=== PATIENT | female | born 1950 | race Native Hawaiian/Other Pacific Islander ===

== ENCOUNTER 2016-07-19 08:26 | Outpatient (CLI) | payer OTHER ==
[2016-07-19 09:11] LABS: PLATELET COUNT 135 K/uL (152-353); POTASSIUM 4.1 mmol/L (3.6-5.2)
== END 2016-07-19 19:09 | disposition home or self-care (01) ==
LOC: LABW 08:26
PROVIDERS: Internal Medicine Gastroenterology
DX: K74.60 Unspecified cirrhosis of liver (principal)
CPT/HCPCS: 36415; 80053; 85027; 85610

== ENCOUNTER 2016-09-26 14:11 | Emergency (ER) | payer OTHER ==
[~2016-09-26] VITALS: Ht 149.9 cm; Wt 74.8 kg
[2016-09-26 14:20] VITALS: TEMP 99
[2016-09-26 15:16] LABS: PLATELET COUNT 122 K/uL (152-353)
[2016-09-26 18:26] VITALS: BP 142/82
== END 2016-09-26 18:27 | disposition home or self-care (01) ==
LOC: ED 14:11
DX: R10.84 Generalized abdominal pain (principal); N39.0 Urinary tract infection, site not specified
CPT/HCPCS: 36415; 81000; 85027; 87077; 87086; 87088; 87186; 96372; 99283; J0696; J3490

== ENCOUNTER 2017-06-30 12:58 | Emergency (ER) | payer OTHER ==
[~2017-06-30] VITALS: Ht 149.9 cm; Wt 72.6 kg
[2017-06-30] MEDS ORDERED: ZESTRIL30 MG PO (13:11)
[2017-06-30] MEDS ORDERED: LEVAQUIN250 MG (13:12)
[2017-06-30] MEDS ORDERED: METO25TA4 OR (13:13)
[2017-06-30] MEDS ORDERED: GRALISE600 MG (13:13)
[2017-06-30] MEDS ORDERED: BENZONATATE200 MG PO (13:14)
[2017-06-30] MEDS ORDERED: AMIT10TA21 PO (13:14)
[2017-06-30] MEDS ORDERED: HYDROCHLOROT50 MG PO (13:14)
[2017-06-30] MEDS ORDERED: ATIVAN2 M1 PO (13:15)
[2017-06-30] MEDS ORDERED: LEVO-T88 MCG PO (13:15)
[2017-06-30] MEDS ORDERED: AMBIEN5 MG PO (13:16)
[2017-06-30] MEDS ORDERED: ESTRADIOL10 MCG PO (13:17)
[2017-06-30] MEDS ORDERED: OMEPRAZOLE20 M1 OR (13:17)
[2017-06-30] MEDS ORDERED: SIMV40TA57 (13:18)
[2017-06-30] MEDS ORDERED: LANTUS100 MG/ML SC (13:19)
[2017-06-30 14:00] LABS: PLATELET COUNT 194 K/uL (152-353)
[2017-06-30 14:10] LABS: POTASSIUM 3.8 mmol/L (3.6-5.2)
[2017-06-30 14:55] VITALS: BP 169/56; TEMP 98.6
== END 2017-06-30 14:56 | disposition home or self-care (01) ==
LOC: ED 12:58
DX: J44.1 Chronic obstructive pulmonary disease with (acute) exacerbation (principal); E11.9 Type 2 diabetes mellitus without complications
CPT/HCPCS: 80053; 81000; 85027; 94664; 96374; 99284; J2920

== ENCOUNTER 2018-02-13 13:07 | Emergency (ER) | payer OTHER ==
[~2018-02-13] VITALS: Ht 149.9 cm; Wt 73.5 kg
[~2018-02-13 13:07] MED LIST: AMBIEN5 MG PO; AMIT10TA21 PO; ATIVAN2 M1 PO; BENZONATATE200 MG PO; ESTRADIOL10 MCG PO; GRALISE600 MG; HYDROCHLOROT50 MG PO; LANTUS100 MG/ML SC; LEVAQUIN250 MG; LEVO-T88 MCG PO; METO25TA4 OR; OMEPRAZOLE20 M1 OR; SIMV40TA57; ZESTRIL30 MG PO
[2018-02-13 13:58] LABS: PLATELET COUNT 129 K/uL (152-353)
[2018-02-13 14:06] LABS: POTASSIUM 3.7 mmol/L (3.6-5.2)
[2018-02-13 16:35] VITALS: BP 163/67; TEMP 98.1
== END 2018-02-13 16:35 | disposition home or self-care (01) ==
LOC: ED 13:07
PROVIDERS: Emergency Medicine
DX: J06.9 Acute upper respiratory infection, unspecified (principal); J20.9 Acute bronchitis, unspecified
CPT/HCPCS: 80053; 85027; 87502; 87651; 94664; 96372; 99283; J0696

== ENCOUNTER 2018-08-23 09:50 | Outpatient (CLI) | payer OTHER ==
[2018-08-23 10:27] LABS: PLATELET COUNT 126 K/uL (152-353)
[2018-08-23 10:30] LABS: POTASSIUM 4.3 mmol/L (3.6-5.2)
== END 2018-08-23 21:38 | disposition home or self-care (01) ==
LOC: LABW 09:50
PROVIDERS: Obstetrics & Gynecology Gynecologic Oncology
DX: D39.11 Neoplasm of uncertain behavior of right ovary (principal); N99.83 Residual ovary syndrome
CPT/HCPCS: 36415; 80053; 85027

== ENCOUNTER 2018-10-03 10:33 | Outpatient (CLI) | payer OTHER | END 2018-10-03 23:04 | disposition home or self-care (01) | LOC: LABW 10:33 | PROVIDERS: Internal Medicine Cardiovascular Disease | DX: E78.49 Other hyperlipidemia (principal) | CPT/HCPCS: 36415; 80061 ==

== ENCOUNTER 2018-12-04 12:45 | Outpatient (CLI) | payer OTHER | END 2018-12-04 20:12 | disposition home or self-care (01) | LOC: RAD 12:45 | DX: R07.81 Pleurodynia (principal) ==

== ENCOUNTER 2018-12-11 15:55 | Outpatient (CLI) | payer OTHER ==
[2018-12-11 17:46] LABS: PLATELET COUNT 171 K/uL (152-353)
[2018-12-11 18:09] LABS: POTASSIUM 3.9 mmol/L (3.6-5.2)
== END 2018-12-11 20:35 | disposition home or self-care (01) ==
LOC: CT 15:55
PROVIDERS: Nurse Practitioner Family
DX: R41.82 Altered mental status, unspecified (principal); R41.3 Other amnesia; R74.8 Abnormal levels of other serum enzymes; R94.5 Abnormal results of liver function studies; K74.69 Other cirrhosis of liver
CPT/HCPCS: 36415; 80053; 80074; 82103; 82390; 82525; 82728; 83516; 83540; 84466; 85027; 85610; 86038

== ENCOUNTER 2018-12-12 08:59 | Outpatient (CLI) | payer OTHER | END 2018-12-12 19:40 | disposition home or self-care (01) | LOC: US 08:59 | DX: R74.8 Abnormal levels of other serum enzymes (principal) ==

== ENCOUNTER 2018-12-16 11:25 | Outpatient (CLI) | payer OTHER | END 2018-12-16 19:46 | disposition home or self-care (01) | LOC: MRI 11:25 | DX: R41.82 Altered mental status, unspecified (principal); R41.3 Other amnesia; I10 Essential (primary) hypertension ==

== ENCOUNTER 2018-12-20 12:06 | Outpatient (CLI) | payer OTHER ==
[2018-12-20 13:00] LABS: PLATELET COUNT 139 K/uL (152-353)
== END 2018-12-20 22:06 | disposition home or self-care (01) ==
LOC: LABW 12:06
PROVIDERS: Internal Medicine Gastroenterology
DX: R94.5 Abnormal results of liver function studies (principal)
CPT/HCPCS: 36415; 80076; 83516; 85027

== ENCOUNTER 2019-04-23 09:53 | Outpatient (CLI) | payer OTHER | END 2019-04-23 22:28 | disposition home or self-care (01) | LOC: RESP 09:53 | DX: R09.89 Other specified symptoms and signs involving the circulatory and respiratory systems (principal); I73.9 Peripheral vascular disease, unspecified; I25.10 Atherosclerotic heart disease of native coronary artery without angina pectoris | CPT/HCPCS: 93306 ==

== ENCOUNTER 2019-07-01 09:45 | Outpatient (CLI) | payer OTHER ==
[2019-07-01 10:03] LABS: PLATELET COUNT 144 K/uL (152-353)
== END 2019-07-01 21:10 | disposition home or self-care (01) ==
LOC: LABW 09:45
PROVIDERS: Internal Medicine Gastroenterology
DX: K74.69 Other cirrhosis of liver (principal); E78.49 Other hyperlipidemia
CPT/HCPCS: 36415; 80061; 80076; 82140; 85027

== ENCOUNTER 2019-08-06 09:33 | Outpatient (CLI) | payer OTHER | END 2019-08-06 22:21 | disposition home or self-care (01) | LOC: LABW 09:33 | DX: R41.3 Other amnesia (principal) | CPT/HCPCS: 36415; 82607; 84443; 86592 ==

== ENCOUNTER 2020-02-23 11:00 | Outpatient (CLI) | payer OTHER ==
[2020-02-23 11:57] LABS: PLATELET COUNT 157 K/uL (152-353)
[2020-02-23 12:14] LABS: POTASSIUM 4.6 mmol/L (3.6-5.2)
== END 2020-02-23 19:44 | disposition home or self-care (01) ==
LOC: LABW 11:00
PROVIDERS: ATTEND Internal Medicine Gastroenterology
DX: K74.69 Other cirrhosis of liver (principal); K75.4 Autoimmune hepatitis; E11.65 Type 2 diabetes mellitus with hyperglycemia; I10 Essential (primary) hypertension; E03.8 Other specified hypothyroidism; E78.49 Other hyperlipidemia
CPT/HCPCS: 36415; 80053; 80061; 82140; 83036; 84443; 85027; 85610

== ENCOUNTER 2020-03-04 12:10 | Outpatient (CLI) | payer OTHER ==
[2020-03-04 12:51] LABS: PLATELET COUNT 167 K/uL (152-353)
[2020-03-04 13:03] LABS: POTASSIUM 4.4 mmol/L (3.6-5.2)
== END 2020-03-04 19:25 | disposition home or self-care (01) ==
LOC: RAD 12:10
PROVIDERS: ATTEND Nurse Practitioner Family
DX: R50.9 Fever, unspecified (principal); E11.65 Type 2 diabetes mellitus with hyperglycemia; W19.XXXA Unspecified fall, initial encounter; T17.320A Food in larynx causing asphyxiation, initial encounter; D72.829 Elevated white blood cell count, unspecified; R71.0 Precipitous drop in hematocrit; I10 Essential (primary) hypertension; E03.8 Other specified hypothyroidism; E78.49 Other hyperlipidemia
CPT/HCPCS: 36415; 80053; 85027; 87040

== ENCOUNTER 2020-03-11 17:09 | Outpatient (CLI) | payer OTHER | END 2020-03-11 19:25 | disposition home or self-care (01) | LOC: RAD 17:09 | PROVIDERS: ATTEND Nurse Practitioner Family | DX: J18.9 Pneumonia, unspecified organism (principal) ==

== ENCOUNTER 2020-08-17 14:35 | Outpatient (CLI) | payer OTHER | END 2020-08-17 22:24 | disposition home or self-care (01) | LOC: RAD 14:35 | PROVIDERS: ATTEND Nurse Practitioner Family | DX: J20.9 Acute bronchitis, unspecified (principal); E11.9 Type 2 diabetes mellitus without complications; E78.49 Other hyperlipidemia; I10 Essential (primary) hypertension; E03.8 Other specified hypothyroidism; K74.60 Unspecified cirrhosis of liver ==

== ENCOUNTER 2020-11-02 11:16 | Outpatient (CLI) | payer OTHER | END 2020-11-02 21:23 | disposition home or self-care (01) | LOC: LABW 11:16 | PROVIDERS: ATTEND Obstetrics & Gynecology Female Pelvic Medicine and Reconstructive Surgery | DX: R32 Unspecified urinary incontinence (principal) | CPT/HCPCS: 81000; 87086; 87088 ==

== ENCOUNTER 2020-12-29 13:03 | Outpatient (CLI) | payer OTHER | END 2020-12-29 20:08 | disposition home or self-care (01) | LOC: LABW 13:03 | PROVIDERS: ATTEND Obstetrics & Gynecology Female Pelvic Medicine and Reconstructive Surgery | DX: Z01.812 Encounter for preprocedural laboratory examination (principal); R32 Unspecified urinary incontinence | CPT/HCPCS: 81000 ==

== ENCOUNTER 2022-02-11 08:53 | Outpatient (CLI) | payer OTHER ==
[2022-02-11 11:03] LABS: PLATELET COUNT 144 K/uL (152-353)
[2022-02-11 11:16] LABS: POTASSIUM 3.5 mmol/L (3.6-5.2); SODIUM 138 mmol/L (136-145)
== END 2022-02-11 18:52 | disposition home or self-care (01) ==
LOC: LABW 08:53
PROVIDERS: ATTEND Nurse Practitioner Family
DX: I11.0 Hypertensive heart disease with heart failure (principal); E03.8 Other specified hypothyroidism; E11.9 Type 2 diabetes mellitus without complications; I50.9 Heart failure, unspecified
CPT/HCPCS: 36415; 80053; 80061; 83036; 83880; 84100; 84443; 84550; 85027

== ENCOUNTER 2022-07-05 10:28 | Emergency (ER) | payer OTHER ==
[~2022-07-05] VITALS: Ht 149.9 cm; Wt 70.8 kg
[2022-07-05 10:35] VITALS: BP 156/60; TEMP 97.2
== END 2022-07-05 13:15 | disposition home or self-care (01) ==
LOC: ED 10:28
DX: S00.83XA Contusion of other part of head, initial encounter (principal); W01.198A Fall on same level from slipping, tripping and stumbling with subsequent striking against other object, initial encounter; Y92.098 Other place in other non-institutional residence as the place of occurrence of the external cause
CPT/HCPCS: 99283